=== PATIENT | male | born 1980 | race Caucasian/White ===

== ENCOUNTER 2017-03-01 15:56 | Emergency (ER) | payer MEDICAID, OTHER ==
[~2017-03-01] VITALS: Ht 177.8 cm; Wt 86.4 kg
[~2017-03-01 15:56] MED LIST: PALI234D IM
[2017-03-01] MEDS ORDERED: DOCU250C91 PO (16:34)
[2017-03-01] MEDS ORDERED: ACET-784 PO (16:34)
[2017-03-01] MEDS ORDERED: OXYC5 PO (16:34)
[2017-03-01] MEDS ORDERED: MULT-1192 PO (16:34)
[2017-03-01] MEDS ORDERED: BENZ1TAB10 PO (16:34)
[2017-03-01] MEDS ORDERED: SENN-175 PO (16:34)
[2017-03-01] MEDS ORDERED: HydrOXYzine HCL 25 MG TABLET PO ONE (17:30)
[2017-03-01 17:52] VITALS: BP 152/88
== END 2017-03-01 18:48 | disposition home or self-care (01) ==
LOC: EMS 15:57
DX: F41.9 Anxiety disorder, unspecified (principal); F31.9 Bipolar disorder, unspecified; F20.9 Schizophrenia, unspecified; I10 Essential (primary) hypertension; F17.210 Nicotine dependence, cigarettes, uncomplicated; Z76.5 Malingerer [conscious simulation]; Z88.8 Allergy status to other drugs, medicaments and biological substances
CPT/HCPCS: 93005; 99285